=== PATIENT | female | born 2000 | race Caucasian/White ===

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

== ENCOUNTER → 2021-09-02 | Outpatient (CLI) | payer OTHER ==
[~2021-09-02] MED LIST changes: +BENADRYL25 M2 PO; +PREDNISONE20 M1 PO
[2021-09-02 15:22] LABS: BASO % 0.4 % (0.0-1.0); EOS % 0.1 % (1.0-4.0); HEMATOCRIT 41.1 % (37.0-47.0); LYMPH % 12.9 % (27.0-41.0); MEAN CELL VOLUME 86.3 fl (81.0-99.0); MEAN CORPUSCULAR HGB 29.2 pg (27.0-31.0); MEAN CORPUSCULAR HGB CONC 33.8 g/dl (33.0-37.0); MONO # 0.9 10*3/uL (0.1-1.0); MONO % 11.7 % (3.0-9.0); NEUT # 5.5 10*3/uL (2.3-7.9); NEUT % 74.6 % (47.0-73.0); PLATELET COUNT AUTOMATED 183 10*3/uL (130-400); RED BLOOD COUNT 4.76 10*6/uL (4.10-5.10); RED CELL DISTRI WIDTH 14.6 % (0-14.5); WHITE BLOOD COUNT 7.4 10*3/uL (4.8-10.8)
[2021-09-02 15:38] LABS: ALKALINE PHOSPHATASE 60 U/L (45-117); BUN 7 mg/dl (7-24); CHLORIDE 107 mmol/L (98-107); CREATININE 0.76 mg/dL (0.55-1.02); POTASSIUM 3.6 mmol/L (3.5-5.1); SGOT/AST 11 IU/L (3-35); SGPT/ALT 20 U/L (12-78); SODIUM 136 mmol/L (136-145); T3 UPTAKE 33 % (31-39); THYROXINE (T4) TOTAL 9.2 ug/dl (4.8-13.9); TOTAL PROTEIN 7.3 gm/dL (6.4-8.2)
== END | disposition home or self-care (01) ==
LOC: LAB 15:04
PROVIDERS: ATTEND Pediatrics
DX: J02.9 Acute pharyngitis, unspecified (principal); D64.9 Anemia, unspecified; Z20.822 Contact with and (suspected) exposure to COVID-19

== ENCOUNTER 2022-08-19 12:33 | Emergency (ER) | payer OTHER ==
[~2022-08-19] VITALS: Ht 167.6 cm; Wt 90.7 kg
[2022-08-19 12:40] VITALS: BP 124/70
[2022-08-19] MEDS ORDERED: CLEOCIN HCL300 MG PO (13:04)
[2022-08-19 13:06] LABS: BASO % 0.7 % (0.0-1.0); EOS # 0.2 10*3/uL (0.0-0.4); EOS % 2.9 % (1.0-4.0); HEMATOCRIT 38.5 % (37.0-47.0); LYMPH # 1.6 10*3/uL (1.3-4.4); LYMPH % 27.9 % (27.0-41.0); MEAN CELL VOLUME 85.7 fl (81.0-99.0); MEAN CORPUSCULAR HGB 29.2 pg (27.0-31.0); MEAN PLATELET VOLUME 10.1 fl (9.6-12.3); MONO # 0.5 10*3/uL (0.1-1.0); MONO % 8.3 % (3.0-9.0); NEUT # 3.5 10*3/uL (2.3-7.9); PLATELET COUNT AUTOMATED 241 10*3/uL (130-400); RED BLOOD COUNT 4.49 10*6/uL (4.10-5.10); RED CELL DISTRI WIDTH 13.5 % (0-14.5); WHITE BLOOD COUNT 5.8 10*3/uL (4.8-10.8)
[2022-08-19 13:26] LABS: ALKALINE PHOSPHATASE 53 U/L (46-116); BUN 6 mg/dl (9-23); CHLORIDE 107 mmol/L (98-107); POTASSIUM 3.8 mmol/L (3.4-5.1); SGPT/ALT 14 U/L (10-49); TOTAL PROTEIN 6.5 gm/dL (6.0-8.0)
[2022-08-19] MEDS ORDERED: MELOXICAM15 MG PO (14:02)
== END 2022-08-19 14:57 | disposition home or self-care (01) ==
LOC: ED 12:33
PROVIDERS: Internal Medicine
DX: K08.89 Other specified disorders of teeth and supporting structures (principal); J45.909 Unspecified asthma, uncomplicated; Z88.1 Allergy status to other antibiotic agents; Z98.890 Other specified postprocedural states

== ENCOUNTER 2022-11-09 22:31 | Emergency (ER) | payer OTHER ==
[~2022-11-09] VITALS: Ht 167.6 cm; Wt 86.2 kg
[~2022-11-09 22:31] MED LIST changes: +CLEOCIN HCL300 MG PO; +MELOXICAM15 MG PO
[2022-11-09 23:06] VITALS: BP 115/70
== END 2022-11-10 00:53 | disposition home or self-care (01) ==
LOC: ED 22:31
DX: Z20.2 Contact with and (suspected) exposure to infections with a predominantly sexual mode of transmission (principal); J45.909 Unspecified asthma, uncomplicated; Z88.1 Allergy status to other antibiotic agents; Z98.890 Other specified postprocedural states

== ENCOUNTER 2023-07-17 21:48 | Emergency (ER) | payer OTHER ==
[~2023-07-17] VITALS: Ht 165.1 cm; Wt 77.1 kg
[2023-07-17 22:26] LABS: BASO % 0.4 % (0.0-1.0); EOS # 0.3 10*3/uL (0.0-0.4); EOS % 3.6 % (1.0-4.0); HEMATOCRIT 37.8 % (37.0-47.0); LYMPH # 2.1 10*3/uL (1.3-4.4); LYMPH % 30.4 % (27.0-41.0); MEAN CELL VOLUME 87.9 fl (81.0-99.0); MEAN CORPUSCULAR HGB 28.6 pg (27.0-31.0); MEAN CORPUSCULAR HGB CONC 32.5 g/dl (33.0-37.0); MEAN PLATELET VOLUME 10.1 fl (9.6-12.3); MONO # 0.4 10*3/uL (0.1-1.0); MONO % 5.4 % (3.0-9.0); NEUT # 4.2 10*3/uL (2.3-7.9); NEUT % 60.1 % (47.0-73.0); PLATELET COUNT AUTOMATED 218 10*3/uL (130-400)
[2023-07-17 22:37] VITALS: BP 110/48
[2023-07-17] MEDS ORDERED: Bacitracin Zinc 14 GM TUBE T ONE (23:35)
== END 2023-07-17 23:49 | disposition home or self-care (01) ==
LOC: ED 21:48
PROVIDERS: Internal Medicine
DX: I95.9 Hypotension, unspecified (principal); T43.225A Adverse effect of selective serotonin reuptake inhibitors, initial encounter; R55 Syncope and collapse; Z88.1 Allergy status to other antibiotic agents; Z96.22 Myringotomy tube(s) status; Y92.89 Other specified places as the place of occurrence of the external cause

== ENCOUNTER 2023-08-08 15:11 | Emergency (ER) | payer OTHER ==
[~2023-08-08] VITALS: Ht 167.6 cm; Wt 85.3 kg
[2023-08-08 15:23] VITALS: BP 116/62
[2023-08-08 15:50] LABS: BILIRUBIN Negative (Negative); BLOOD Negative (Negative); CLARITY Cloudy (Clear); COLOR Yellow (Yellow); GLUCOSE Negative (Negative); KETONE Negative (Negative); LEUKO ESTERASE 1+ (Negative); NITRITE Negative (Negative); PH 5.5 (4.5-8.0); UROBILINOGEN 0.2 E.U./dl (0.0-1.0)
[2023-08-08 15:55] LABS: BASO % 0.7 % (0.0-1.0); EOS # 0.2 10*3/uL (0.0-0.4); EOS % 3.1 % (1.0-4.0); HEMATOCRIT 42.2 % (37.0-47.0); LYMPH # 1.6 10*3/uL (1.3-4.4); LYMPH % 26.3 % (27.0-41.0); MEAN CELL VOLUME 87.4 fl (81.0-99.0); MEAN CORPUSCULAR HGB 28.8 pg (27.0-31.0); MEAN CORPUSCULAR HGB CONC 32.9 g/dl (33.0-37.0); MEAN PLATELET VOLUME 10.3 fl (9.6-12.3); MONO # 0.4 10*3/uL (0.1-1.0); MONO % 6.7 % (3.0-9.0); NEUT # 3.9 10*3/uL (2.3-7.9); PLATELET COUNT AUTOMATED 224 10*3/uL (130-400); RED BLOOD COUNT 4.83 10*6/uL (4.10-5.10); RED CELL DISTRI WIDTH 13.9 % (0-14.5); WHITE BLOOD COUNT 6.1 10*3/uL (4.8-10.8)
[2023-08-08 15:58] LABS: BACTERIA 1+; EPITHELIAL CELLS 21-30; RBC 0-2 rbc/hpf (0-2)
[2023-08-08 16:13] LABS: ALKALINE PHOSPHATASE 53 U/L (46-116); BUN 8 mg/dl (9-23); CHLORIDE 110 mmol/L (98-107); SGPT/ALT 14 U/L (5-49); TOTAL PROTEIN 6.8 gm/dL (6.0-8.0)
[2023-08-08] MEDS ORDERED: CEPHALEXIN500 M1 PO (16:48)
== END 2023-08-08 16:56 | disposition home or self-care (01) ==
LOC: ED 15:11
PROVIDERS: Internal Medicine; Nurse Practitioner
DX: O26.891 Other specified pregnancy related conditions, first trimester (principal); O21.9 Vomiting of pregnancy, unspecified; R82.71 Bacteriuria; R42 Dizziness and giddiness; J45.909 Unspecified asthma, uncomplicated; F32.A Depression, unspecified; Z88.1 Allergy status to other antibiotic agents; Z98.890 Other specified postprocedural states; Z3A.00 Weeks of gestation of pregnancy not specified; Z3A.01 Less than 8 weeks gestation of pregnancy

== ENCOUNTER 2024-04-17 13:20 | Emergency (ER) | payer OTHER ==
[~2024-04-17] VITALS: Ht 167.6 cm
[~2024-04-17 13:20] MED LIST changes: +CEPHALEXIN500 M1 PO
[2024-04-17] MEDS ORDERED: SODIUM CHLORIDE 0.9% 1,000 ML IV ONE (13:40)
[2024-04-17] MEDS ORDERED: MORPHINE Sulfate 2 MG/ML SYR IV ONE (13:40)
[2024-04-17 13:41] VITALS: BP 122/73
[2024-04-17] MEDS ORDERED: Ondansetron Hydrochloride 4 MG/2 ML VIAL IV ONE (13:45)
[2024-04-17 13:51] LABS: BASO % 0.3 % (0.0-1.0); EOS # 0.2 10*3/uL (0.0-0.4); EOS % 1.3 % (1.0-4.0); HEMATOCRIT 36.4 % (37.0-47.0); MEAN CELL VOLUME 90.5 fl (81.0-99.0); MEAN CORPUSCULAR HGB 29.9 pg (27.0-31.0); MEAN PLATELET VOLUME 9.3 fl (9.6-12.3); MONO # 0.7 10*3/uL (0.1-1.0); MONO % 5.2 % (3.0-9.0); NEUT # 11.6 10*3/uL (2.3-7.9); NEUT % 85.7 % (47.0-73.0); PLATELET COUNT AUTOMATED 352 10*3/uL (130-400); RED BLOOD COUNT 4.02 10*6/uL (4.10-5.10); RED CELL DISTRI WIDTH 13.9 % (0-14.5); WHITE BLOOD COUNT 13.5 10*3/uL (4.8-10.8)
[2024-04-17 14:12] LABS: ALKALINE PHOSPHATASE 102 U/L (46-116); BUN 8 mg/dl (9-23); CHLORIDE 106 mmol/L (98-107); SGPT/ALT 14 U/L (5-49); TOTAL PROTEIN 6.5 gm/dL (6.0-8.0)
[2024-04-17] MEDS ORDERED: fentaNYL CITRATE 100 MCG/2 ML VIAL IV ONE (14:55)
[2024-04-17] MEDS ORDERED: Piperacillin Sodium/Tazobact 50 ML IV ONE (16:25)
== END 2024-04-17 17:44 | disposition short-term general hospital (02) ==
LOC: ED 13:20
PROVIDERS: Physician Assistant Medical
DX: O72.2 Delayed and secondary postpartum hemorrhage (principal); Z88.1 Allergy status to other antibiotic agents; Z37.0 Single live birth

== ENCOUNTER 2024-05-25 00:25 | Emergency (ER) | payer OTHER ==
[~2024-05-25] VITALS: Ht 167.6 cm; Wt 104.3 kg
[2024-05-25 00:35] VITALS: BP 128/79
[2024-05-25] MEDS ORDERED: Ondansetron Hydrochloride 4 MG TAB SL ONE (01:40)
[2024-05-25] MEDS ORDERED: Ketorolac Tromethamine 60 MG/2 ML VIAL IM ONE (01:40)
[2024-05-25] MEDS ORDERED: CLINDAMYCIN HCL 300 MG CAPSULE PO ONE (01:40)
[2024-05-25] MEDS ORDERED: CLINDAMYCIN HC300 MG PO (01:44)
[2024-05-26] MEDS ORDERED: PRENATAL VITAM1 EAC1 PO (02:14)
[2024-05-26] MEDS ORDERED: PENICILLIN VK500 MG PO (02:21)
== END 2024-05-25 01:58 | disposition home or self-care (01) ==
LOC: ED 00:25
DX: K02.9 Dental caries, unspecified (principal); K04.7 Periapical abscess without sinus; Z88.1 Allergy status to other antibiotic agents; Z96.22 Myringotomy tube(s) status

== ENCOUNTER 2024-05-26 02:05 | Emergency (ER) | payer OTHER ==
[~2024-05-26] VITALS: Ht 167.6 cm; Wt 104.3 kg
[~2024-05-26 02:05] MED LIST changes: +CLINDAMYCIN HC300 MG PO
[2024-05-26 02:13] VITALS: BP 141/87
[2024-05-26] MEDS ORDERED: PRENATAL VITAM1 EAC1 PO (02:14)
[2024-05-26] MEDS ORDERED: Ondansetron Hydrochloride 4 MG TAB SL ONE (02:20)
[2024-05-26] MEDS ORDERED: PENICILLIN V POTASSIUM 500 MG TAB PO ONE (02:20)
[2024-05-26] MEDS ORDERED: Acetaminophen/Hydrocodone 5 MG/325 MG TABLET PO ONE (02:20)
[2024-05-26] MEDS ORDERED: PENICILLIN VK500 MG PO (02:21)
== END 2024-05-26 02:27 | disposition home or self-care (01) ==
LOC: ED 02:05
DX: K02.9 Dental caries, unspecified (principal); Z88.1 Allergy status to other antibiotic agents; Z79.899 Other long term (current) drug therapy

== ENCOUNTER → 2024-09-01 | Outpatient (CLI) | payer OTHER ==
[~2024-09-01] MED LIST changes: +PENICILLIN VK500 MG PO; +PRENATAL VITAM1 EAC1 PO
== END ==
LOC: US 10:00
PROVIDERS: ATTEND Internal Medicine Nephrology
DX: R22.2 Localized swelling, mass and lump, trunk (principal)

== ENCOUNTER 2024-09-15 18:40 | Emergency (ER) | payer OTHER ==
[~2024-09-15] VITALS: Ht 170.1 cm; Wt 104.3 kg
[2024-09-15 18:45] VITALS: BP 107/66
[2024-09-15] MEDS ORDERED: SODIUM CHLORIDE 0.9% 1,000 ML IV ONE (18:55)
[2024-09-15] MEDS ORDERED: diphenhydrAMINE hydrochloride 50 MG/ML VIAL IV ONE (18:55)
== END 2024-09-15 19:44 | disposition left against medical advice (07) ==
LOC: ED 18:40
DX: R55 Syncope and collapse (principal); R42 Dizziness and giddiness; R11.0 Nausea; Z79.899 Other long term (current) drug therapy; Z88.1 Allergy status to other antibiotic agents; Z98.890 Other specified postprocedural states

== ENCOUNTER 2024-10-15 17:34 | Emergency (ER) | payer OTHER | END 2024-10-15 18:31 | disposition left against medical advice (07) | LOC: ED 17:34 | DX: Z00.8 Encounter for other general examination (principal); Z53.21 Procedure and treatment not carried out due to patient leaving prior to being seen by health care provider ==

== ENCOUNTER 2024-10-17 19:51 | Emergency (ER) | payer OTHER ==
[~2024-10-17] VITALS: Ht 157.4 cm; Wt 99.8 kg
[2024-10-17 19:58] VITALS: BP 114/49
== END 2024-10-17 22:12 | disposition home or self-care (01) ==
LOC: ED 19:51
DX: B34.9 Viral infection, unspecified (principal); Z32.01 Encounter for pregnancy test, result positive; J45.909 Unspecified asthma, uncomplicated; F32.A Depression, unspecified; Z20.822 Contact with and (suspected) exposure to COVID-19; Z88.1 Allergy status to other antibiotic agents

== ENCOUNTER → 2024-10-27 | Outpatient (CLI) | payer OTHER | END | disposition home or self-care (01) | LOC: US 10:00 | PROVIDERS: ATTEND Nurse Practitioner Women's Health | DX: Z34.81 Encounter for supervision of other normal pregnancy, first trimester (principal); Z3A.01 Less than 8 weeks gestation of pregnancy ==

== ENCOUNTER 2024-11-09 19:39 | Emergency (ER) | payer OTHER ==
[~2024-11-09] VITALS: Ht 167.6 cm; Wt 104.3 kg
[2024-11-09 19:53] VITALS: BP 110/52
[2024-11-09] MEDS ORDERED: HYDROCORTISONE 1% 28 GM TUBE T ONE (20:05)
== END 2024-11-09 20:39 | disposition home or self-care (01) ==
LOC: ED 19:39
DX: O99.711 Diseases of the skin and subcutaneous tissue complicating pregnancy, first trimester (principal); L25.9 Unspecified contact dermatitis, unspecified cause; Z88.1 Allergy status to other antibiotic agents; Z96.22 Myringotomy tube(s) status; Z3A.09 9 weeks gestation of pregnancy